=== PATIENT | male | born 1980 | race Caucasian/White ===

== ENCOUNTER 2017-03-23 02:50 | Emergency (ER) | payer OTHER ==
[2017-03-23 03:28] VITALS: BP 133/61
[2017-03-23] MEDS ORDERED: Ketorolac 60 MG/2 ML SDV IM ONE (03:33)
[2017-03-23] MEDS ORDERED: Cyclobenzaprine 10 MG Tab PO ONE (03:34)
[2017-03-23] MEDS ORDERED: Acetaminophen/oxyCODONE 325-5 MG Tab PO ONE (03:34)
--- NOTE | 2017-03-23 03:47 | EDM.PDOC ---
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 He now has pain in the post cervical area, very high in the cervical spine. He has not had a definite injury. Onset: Today, Gradual Duration: Hour(s): Location: Reports: Neck Associated Symptoms: Reports: Other ( He does not have a definite headache it is severe pain in the upper cervical area. ) Treatments FRAME [employer]ER: Reports: NSAIDS head/neck Pain Score (Numeric/FACES): 6 - Related Data Allergies Allergy/AdvReac Type Severity Reaction Status Date / Time No Known Allergies Allergy Verified 03/23/17 03:34 Home Meds: Home Meds NK [No Known Home Meds] 03/23/17 [History] Past Medical History HEENT History: Reports: None Cardiovascular History: Reports: None Respiratory History: Reports: None Gastrointestinal History: Reports: None Genitourinary History: Reports: None Musculoskeletal History: Reports: Other (See Below) Other Musculoskeletal History: lower back pain Neurological History: Reports: None Psychiatric History: Reports: None Endocrine/Metabolic History: Reports: None Hematologic History: Reports: None Immunologic History: Reports: None Oncologic (Cancer) History: Reports: None Dermatologic History: Reports: None - Infectious Disease History Infectious Disease History: Reports: Chicken Pox - Past Surgical History Head Surgeries/Procedures: Reports: None HEENT Surgical History: Reports: Oral Surgery Cardiovascular Surgical History: Reports: None Respiratory Surgical History: Reports: None GI Surgical History: Reports: None Endocrine Surgical History: Reports: None Neurological Surgical History: Reports: None Musculoskeletal Surgical History: Reports: None Oncologic Surgical History: Reports: None Dermatological Surgical History: Reports: None Social & Family History - Tobacco Use Smoking Status *Q: Never Smoker - Caffeine Use Caffeine Use: Reports: Coffee - Recreational Drug Use Recreational Drug Use: No ED ROS GENERAL - Review of Systems Review Of Systems: See Below Constitutional: Reports: No Symptoms HEENT: Reports: No Symptoms Respiratory: Reports: No Symptoms Cardiovascular: Reports: No Symptoms Endocrine: Reports: No Symptoms GI/Abdominal: Reports: No Symptoms : Reports: No Symptoms Musculoskeletal: Reports: Other ( tender in the upper cervical area. ) - Physical Exam Exam: See Below Text/Narrative:: Pt has severe pain in the upper cervical area. Exam Limited By: No Limitations General Appearance: Alert, Anxious, Moderate Distress Ears: Normal TMs Nose: Normal Inspection Throat/Mouth: Normal Inspection Head Exam: Atraumatic Neck: Tender Lateral, Other ( Pt has tenderness lateral high in the cervical spine , more on the left side. ) Cardiovascular: Regular Rate, Rhythm GI/Abdominal: Soft, Non-Tender Course - Vital Signs Last Recorded V/S: Last Vital Signs Temp 36.1 C 03/23/17 03:25 Pulse 64 03/23/17 03:25 Resp 18 03/23/17 03:25 BP 133/61 03/23/17 03:25 Pulse Ox 97 03/23/17 03:25 - Orders/Labs/Meds Meds: Medications Discontinued Medications Generic Name Dose Route Start Last Admin Trade Name Freq PRN Reason Stop Dose Admin Cyclobenzaprine HCl 10 mg 03/23/17 03:34 03/23/17 03:44 Flexeril PO 03/23/17 03:35 10 mg ONETIME ONE Administration Hydromorphone HCl 0.5 mg 03/23/17 04:45 03/23/17 04:59 Dilaudid IM 03/23/17 04:46 Not Given ONETIME ONE Ketorolac Tromethamine 60 mg 03/23/17 03:33 03/23/17 03:44 Toradol IM 03/23/17 03:34 60 mg ONETIME ONE Administration Oxycodone/Acetaminophen 1 tab 03/23/17 03:34 03/23/17 03:43 Percocet 325-5 Mg PO 03/23/17 03:35 1 tab ONETIME ONE Administration - Re-Assessments/Exams Free Text/Narrative Re-Assessment/Exam: 03/23/17 03:46 pt was given torodol 60mg im , percocet 5/325 and flexeril 10mg Departure - Departure Time of Disposition: 05:25 Disposition: Home, Self-Care 01 Condition: Fair Clinical Impression: Cervical paraspinal muscle spasm - Discharge Information Instructions: Muscle Cramps and Spasms Referrals: PCP,None [Primary Care Provider] - Forms: ED Department Discharge Care Plan Goals: moist warm packs, avoid doing alot of over head work, flexeril 10 mg 1/2 tab qam, 1/2 tab noon, 1 and 1/2 tab hs, motrin 600mg tid, norco 5/325 q6h prn for pain. If not improving may need to consider physical therapy.
[2017-03-23] MEDS ORDERED: HYDROmorphone 0.5 MG/0.5 ML Syringe IM ONE (04:45)
== END 2017-03-23 05:16 | disposition home or self-care (01) ==
LOC: JP.ED 02:50
DX: M62.838 Other muscle spasm (principal); Z98.890 Other specified postprocedural states; X58.XXXA Exposure to other specified factors, initial encounter
CPT/HCPCS: 96372; 99283; A9270; J1885